=== PATIENT | male | born 1960 | race Caucasian/White ===

== ENCOUNTER 2017-08-08 09:58 | Emergency (ER) | payer OTHER ==
[~2017-08-08] VITALS: Ht 175.3 cm; Wt 133.2 kg
[2017-08-08 10:13] VITALS: BP 178/81; PULSE 66; RESP 16; TEMP 98; O2SAT 92
[2017-08-08] MEDS ORDERED: CARV25TA PO (10:59)
[2017-08-08] MEDS ORDERED: ALBUAER3 INH (10:59)
[2017-08-08] MEDS ORDERED: METF500T PO (10:59)
[2017-08-08] MEDS ORDERED: SYMB160A INH (10:59)
[2017-08-08] MEDS ORDERED: NICO21DI2 T-DERMAL (10:59)
[2017-08-08] MEDS ORDERED: LISI10TA PO (10:59)
[2017-08-08] MEDS ORDERED: AMLO10TA2 PO (10:59)
--- NOTE | 2017-08-08 11:39 | PD ---
HPI Chief Complaint: Edema Time Seen by Provider: 11:29 Travel History International Travel<30 days: No Contact w/Intl Traveler<30days: No Traveled to known affect area: No History of Present Illness HPI This 57-year-old male says he noted some swelling of his legs and arms since Tuesday. He has a history of hypertension and diabetes. He is on Glucophage he is also on Norvasc. He is not aware of any recent change in his medication. He does have significant arthritis. He has noted some breathing difficulties at night. He is a history of COPD he is not having any chest pain. PFSH Past Medical History Arthritis: Yes Cardiovascular Problems: Yes (htn) COPD: Yes Diabetes: Yes (type 2) Patient Takes Glucophage: Yes (08/07/17 1900) Diminished Hearing: No Hypertension: Yes Medical other: Yes (left leg DVT) Respiratory: Yes (copd) Tetanus Vaccination: < 5 Years Influenza Vaccination: No Past Surgical History Joint Replacement: Yes (bilat knee replace.) Social History Alcohol Use: No Tobacco Use: Yes (1-2 cigs daily) Substance Use: Yes (marijuana ) Allergies-Medications (Allergen,Severity, Reaction): Coded Allergies: aspirin (Verified Allergy, Severe, facial swelling, 08/08/17) ibuprofen (Verified Allergy, Severe, facial swelling, 08/08/17) penicillin G (Verified Allergy, Unknown, 08/08/17) Reported Meds & Prescriptions Reported Meds & Active Scripts Active Reported Nicotine Patch (Nicotine) 21 Mg/24 Hr Patch 21 Mg T-DERMAL DAILY Lisinopril-Hctz 10-12.5 Mg Tab 2 Tab PO DAILY Metformin (Metformin HCl) 500 Mg Tab 500 Mg PO DAILY With a meal Amlodipine (Amlodipine Besylate) 10 Mg Tab 10 Mg PO DAILY Carvedilol 25 Mg Tab 25 Mg PO BID Proair Hfa (Albuterol Sulfate) 90 Mcg Hfa.aer.ad 90 Mcg INH TID Symbicort Inh (Budesonide/Formoterol Fumarate) 160-4.5 Mcg/Act Aero 2 Puff INH Q12HR Review of Systems Except as stated in HPI: all other systems reviewed are Neg General / Constitutional: No: Fever, Chills Eyes: No: Diploplia, Blurred Vision HENT: No: Headaches, Vertigo Cardiovascular: Positive: Edema, No: Chest Pain or Discomfort, Palpitations Respiratory: Positive: Shortness of Breath, No: Cough Gastrointestinal: No: Nausea, Vomiting Genitourinary: No: Urgency, Frequency Musculoskeletal: No: Myalgias Psychiatric: No: Anxiety Endocrine: No: Heat Intolerance, Cold Intolerance Physical Exam Narrative GENERAL: [-] SKIN: Focused skin assessment warm/dry. HEAD: Atraumatic. Normocephalic. EYES: Pupils equal and round. No scleral icterus. No injection or drainage. ENT: No nasal bleeding or discharge. Mucous membranes pink and moist. NECK: Trachea midline. No JVD. CARDIOVASCULAR: Regular rate and rhythm. No murmur appreciated. RESPIRATORY: No accessory muscle use. Clear to auscultation. Breath sounds equal bilaterally. GASTROINTESTINAL: Abdomen soft, non-tender, nondistended. Hepatic and splenic margins not palpable. MUSCULOSKELETAL: No obvious deformities. No clubbing. No cyanosis. Bilateral pedal edema NEUROLOGICAL: Awake and alert. No obvious cranial nerve deficits. Motor grossly within normal limits. Normal speech. PSYCHIATRIC: Appropriate mood and affect; insight and judgment normal. Data Data Last Documented VS Vital Signs Date Time Temp Pulse Resp B/P (MAP) Pulse Ox O2 Delivery O2 Flow Rate FiO2 08/08/17 10:13 98.0 66 16 178/81 (113) 92 Orders Orders Electrocardiogram (08/08/17 11:36) Complete Blood Count With Diff (08/08/17 11:36) Comprehensive Metabolic Panel (08/08/17 11:36) B-Type Natriuretic Peptide (08/08/17 11:36) Urinalysis - C+S If Indicated (08/08/17 11:36) Magnesium (Mg) (08/08/17 11:36) Thyroid Stimulating Hormone (08/08/17 11:36) Chest, Single Ap (08/08/17 11:36) Labs Laboratory Tests Test 08/08/17 11:30 08/08/17 11:55 Urine Color STRAW Urine Turbidity CLEAR Urine pH 7.5 Urine Specific [place] 1.015 Urine Protein TRACE mg/dL Urine Glucose (UA) NEG mg/dL Urine Ketones NEG mg/dL Urine Occult Blood NEG Urine Nitrite NEG Urine Bilirubin NEG Urine Urobilinogen 0.2 MG/DL Urine Leukocyte Esterase NEG Urine RBC 4-9 /hpf Urine WBC 0-2 /hpf Urine Squamous Epithelial Cells 0-5 /hpf Urine Bacteria RARE /hpf Urine Hyaline Casts 2 /lpf Urine Mucus OCC /lpf Microscopic Urinalysis Comment CULT NOT INDICATED White Blood Count 8.2 TH/MM3 Red Blood Count 5.04 MIL/MM3 Hemoglobin 14.1 GM/DL Hematocrit 42.5 % Mean Corpuscular Volume 84.3 FL Mean Corpuscular Hemoglobin 27.9 PG Mean Corpuscular Hemoglobin Concent 33.1 % Red Cell Distribution Width 13.2 % Platelet Count 242 TH/MM3 Mean Platelet Volume 7.7 FL Neutrophils (%) (Auto) 65.0 % Lymphocytes (%) (Auto) 19.4 % Monocytes (%) (Auto) 9.1 % Eosinophils (%) (Auto) 6.0 % Basophils (%) (Auto) 0.5 % Neutrophils # (Auto) 5.4 TH/MM3 Lymphocytes # (Auto) 1.6 TH/MM3 Monocytes # (Auto) 0.7 TH/MM3 Eosinophils # (Auto) 0.5 TH/MM3 Basophils # (Auto) 0.0 TH/MM3 CBC Comment DIFF FINAL Differential Comment Blood Urea Nitrogen 14 MG/DL Creatinine 0.60 MG/DL Random Glucose 90 MG/DL Total Protein 7.1 GM/DL Albumin 3.2 GM/DL Calcium Level 8.5 MG/DL Magnesium Level 2.0 MG/DL Alkaline Phosphatase 72 U/L Aspartate Amino Transf (AST/SGOT) 14 U/L Alanine Aminotransferase (ALT/SGPT) 19 U/L Total Bilirubin 0.3 MG/DL Sodium Level 138 MEQ/L Potassium Level 3.6 MEQ/L Chloride Level 100 MEQ/L Carbon Dioxide Level 32.7 MEQ/L Anion Gap 5 MEQ/L Estimat Glomerular Filtration Rate 139 ML/MIN B-Type Natriuretic Peptide 50 PG/ML Thyroid Stimulating Hormone 3rd Gen 1.490 uIU/ML [facility] Medical Decision Making Medical Screen Exam Complete: Yes Emergency Medical Condition: Yes Medical Record Reviewed: Yes Differential Diagnosis Differential includes CHF, anasarca, medication side effect Narrative Course BMP is normal. Chest x-ray read as negative. Albumin is slightly low at 3.2. I suspect the edema is primarily due to his Norvasc. I will recommend he stop the Norvasc and will substitute 20 mg of lisinopril Diagnosis Primary Impression: Adverse drug reaction Additional Instructions: Stop Norvasc Scripts Lisinopril (Lisinopril) 20 Mg Tab 20 MG PO DAILY, #30 TAB 0 Refills Prov: Henri Mayes MD 08/08/17 Disposition: 01 DISCHARGE HOME Condition: Stable Henri Mayes MD Aug 08, 2017 11:39
[2017-08-08 12:11] LABS: AUTOMATED NEUTROPHIL # 5.4 TH/MM3 (1.8-7.7); BASOPHIL % 0.5 % (0.0-2.0); EOSINOPHIL # 0.5 TH/MM3 (0-0.4); HEMATOCRIT 42.5 % (39.0-51.0); HEMOGLOBIN 14.1 GM/DL (13.0-17.0); LYMPH % 19.4 % (9.0-44.0); LYMPHOCYTE # 1.6 TH/MM3 (1.0-4.8); MEAN CELL VOLUME 84.3 FL (80.0-100.0); MEAN CORPUSCULAR HEMOGLOBIN 27.9 PG (27.0-34.0); MEAN CORPUSCULAR HGB CONC 33.1 % (32.0-36.0); MEAN PLATELET VOLUME 7.7 FL (7.0-11.0); MONO % 9.1 % (0.0-8.0); MONOCYTE # 0.7 TH/MM3 (0-0.9); PLATELET COUNT 242 TH/MM3 (150-450); RED BLOOD COUNT 5.04 MIL/MM3 (4.50-5.90); RED CELL DISTRIBUTION WIDTH 13.2 % (11.6-17.2); WHITE BLOOD COUNT 8.2 TH/MM3 (4.0-11.0)
--- NOTE | 2017-08-08 12:25 | RADRPT ---
EXAM DATE/TIME: 08/08/2017 11:50 [facility] COMPARISON: No previous studies available for comparison. INDICATIONS : Short of Breath with leg swelling MEDICAL HISTORY : None. SURGICAL HISTORY : None. ENCOUNTER: Initial ACUITY: 1 day PAIN SCORE: 0/10 LOCATION: chest FINDINGS: A single view of the chest demonstrates the lungs to be symmetrically aerated without evidence of mas s, infiltrate or effusion. The cardiomediastinal contours are unremarkable. Osseous structures are intact. CONCLUSION: No acute disease. Sami Mccabe MD on August 08, 2017 at 12:24 Board Certified Radiologist. This report was verified electronically.
[2017-08-08 12:30] LABS: CHLORIDE 100 MEQ/L (98-107); SODIUM (NA) 138 MEQ/L (136-145)
[2017-08-08 12:34] LABS: CALCIUM 8.5 MG/DL (8.5-10.1)
[2017-08-08 12:35] LABS: ALBUMIN 3.2 GM/DL (3.4-5.0); BICARBONATE 32.7 MEQ/L (21.0-32.0); BLOOD UREA NITROGEN 14 MG/DL (7-18); GLUCOSE,RANDOM 90 MG/DL (74-106)
[2017-08-08 12:38] LABS: ALT (GPT) 19 U/L (12-78); AST (GOT) 14 U/L (15-37); GLOMERULAR FILTRATION RATE 139 ML/MIN (>89)
[2017-08-08 12:39] LABS: TOTAL BILIRUBIN ADULT 0.3 MG/DL (0.2-1.0); TOTAL PROTEIN 7.1 GM/DL (6.4-8.2)
[2017-08-08 12:40] LABS: ALKALINE PHOSPHATASE 72 U/L (45-117)
[2017-08-08 12:42] LABS: BILIRUBIN, URINE NEG (NEG); BLOOD, URINE NEG (NEG); GLUCOSE,URINE NEG (NEG); KETONE, URINE NEG (NEG); NITRITE,URINE NEG (NEG); PH, URINE 7.5 (5.0-8.5); URINE LEUKOCYTE ESTERASE NEG (NEG)
[2017-08-08 12:43] LABS: URINE COLOR STRAW (YELLW/STRAW)
[2017-08-08 12:50] LABS: HYALINE CAST, URINE 2 /lpf (RARE); MUCUS URINE OCC /lpf (OCC); WBC, URINE 0-2 /hpf (0-5)
[2017-08-08 12:51] LABS: BACTERIA, URINE RARE /hpf; SQUAMOUS EPITHELIAL CELL URINE 0-5 /hpf (0-5)
[2017-08-08] MEDS ORDERED: LISI-515 PO (13:10)
[2017-08-08 13:34] VITALS: BP 164/82
--- NOTE | 2017-08-08 15:16 | EKG ---
Date Performed: 08/08/2017 Time Performed: 11:52:02 PTAGE: 57 years EKG: SINUS BRADYCARDIA WITH SINUS ARRHYTHMIA BORDERLINE ECG NO PREVIOUS TRACING DOCTOR: Gila Torres Interpretating Date/Time 08/08/2017 15:11:40
== END 2017-08-08 13:40 | disposition home or self-care (01) ==
LOC: PHED 09:58
DX: R60.0 Localized edema (principal); T46.1X5A Adverse effect of calcium-channel blockers, initial encounter; R94.31 Abnormal electrocardiogram [ECG] [EKG]; I10 Essential (primary) hypertension; E11.9 Type 2 diabetes mellitus without complications; J44.9 Chronic obstructive pulmonary disease, unspecified; F17.210 Nicotine dependence, cigarettes, uncomplicated; F12.90 Cannabis use, unspecified, uncomplicated; Z86.718 Personal history of other venous thrombosis and embolism
CPT/HCPCS: 71045; 80053; 81001; 83735; 83880; 84443; 85025; 93005; 99285

== ENCOUNTER 2017-08-25 14:03 | Inpatient (IN) | payer OTHER ==
[~2017-08-25] VITALS: Ht 172.7 cm; Wt 127.0 kg
[2017-08-25] VITALS (8 sets, daily range): BP systolic 111–137; BP diastolic 69–75; PULSE 77–85; RESP 16–18; TEMP 96.1–99.2; O2SAT 90–95
[~2017-08-25 14:03] MED LIST: ALBUAER3 INH; AMLO10TA2 PO; CARV25TA PO; LISI-515 PO; LISI10TA PO; METF500T PO; NICO21DI2 T-DERMAL; SYMB160A INH
[2017-08-25] MEDS ORDERED: AZIT500T2 PO (14:20)
[2017-08-25] MEDS ORDERED: FURO1TAB60 PO (14:20)
--- NOTE | 2017-08-25 14:28 | PD ---
HPI Chief Complaint: Respiratory Symptoms Time Seen by Provider: 14:24 Travel History International Travel<30 days: No Contact w/Intl Traveler<30days: No Traveled to known affect area: No History of Present Illness HPI 57-year-old male patient with history of COPD, currently on Lasix, hypertension , presents to the ER today for 1 week history of coughing, shortness of breath, chest discomfort, dyspnea on exertion. He had been in to the ER a week ago and had been given Lasix which he is still taking, was seen at urgent care a few days ago and they told him that it was his COPD, and a flu, and had given him inhalers, and he is here because he states is not getting better. He denies any fevers, vomiting, diarrhea, or other issues. Modifying Factors: None Associated Signs & Symptoms: Coughing, shortness of breath Risk Factors: COPD history PFSH Past Medical History Arthritis: Yes Cardiovascular Problems: Yes (htn) COPD: Yes Diabetes: Yes (type 2) Patient Takes Glucophage: Yes Diminished Hearing: No Hypertension: Yes Respiratory: Yes (copd) Tetanus Vaccination: < 5 Years Influenza Vaccination: No Past Surgical History Joint Replacement: Yes (bilat knee replace.) Social History Alcohol Use: No Tobacco Use: No Substance Use: Yes (marijuana ) Allergies-Medications (Allergen,Severity, Reaction): Coded Allergies: aspirin (Verified Allergy, Severe, facial swelling, 08/25/17) ibuprofen (Verified Allergy, Severe, facial swelling, 08/25/17) penicillin G (Verified Allergy, Unknown, 08/25/17) Reported Meds & Prescriptions Reported Meds & Active Scripts Active Lisinopril 20 Mg Tab 20 Mg PO DAILY Reported Azithromycin 500 Mg Tab 500 Mg PO DAILY Lasix (Furosemide) 40 Mg Tab 40 Mg PO DAILY Nicotine Patch (Nicotine) 21 Mg/24 Hr Patch 21 Mg T-DERMAL DAILY Lisinopril-Hctz 10-12.5 Mg Tab 2 Tab PO DAILY Metformin (Metformin HCl) 500 Mg Tab 500 Mg PO DAILY With a meal Carvedilol 25 Mg Tab 25 Mg PO BID Proair Hfa (Albuterol Sulfate) 90 Mcg Hfa.aer.ad 90 Mcg INH TID Symbicort Inh (Budesonide/Formoterol Fumarate) 160-4.5 Mcg/Act Aero 2 Puff INH Q12HR Review of Systems Except as stated in HPI: all other systems reviewed are Neg Physical Exam Narrative GENERAL: Well-developed middle-age male patient currently in mild distress. Awake and oriented 3. SKIN: Focused skin assessment warm/dry. HEAD: Atraumatic. Normocephalic. EYES: Pupils equal and round. No scleral icterus. No injection or drainage. ENT: No nasal bleeding or discharge. Mucous membranes pink and moist. NECK: Trachea midline. No JVD. Supple. CARDIOVASCULAR: Regular rate and rhythm. No murmur appreciated. RESPIRATORY: No accessory muscle use. Wheezing throughout bilaterally. Breath sounds equal bilaterally. GASTROINTESTINAL: Abdomen soft, non-tender, nondistended. Hepatic and splenic margins not palpable. MUSCULOSKELETAL: No obvious deformities. No clubbing. No cyanosis. Bilateral pitting edema of the legs. NEUROLOGICAL: Awake and alert. No obvious cranial nerve deficits. Motor grossly within normal limits. Normal speech. PSYCHIATRIC: Appropriate mood and affect; insight and judgment normal. Data Data Last Documented VS Vital Signs Date Time Temp Pulse Resp B/P (MAP) Pulse Ox O2 Delivery O2 Flow Rate FiO2 08/25/17 16:02 85 18 111/69 (83) 93 Nasal Cannula 2.00 08/25/17 14:13 99.2 Orders Orders Complete Blood Count With Diff (08/25/17 14:24) Comprehensive Metabolic Panel (08/25/17 14:24) B-Type Natriuretic Peptide (08/25/17 14:24) Ckmb (Isoenzyme) Profile (08/25/17 14:24) Troponin I (08/25/17 14:24) Iv Access Insert/Monitor (08/25/17 14:24) Electrocardiogram (08/25/17 14:24) Ecg Monitoring (08/25/17 14:24) Oximetry (08/25/17 14:24) Oxygen Administration (08/25/17 14:24) Chest, Single Ap (08/25/17 14:24) Sodium Chloride 0.9% Flush (Ns Flush) (08/25/17 14:30) Albuterol-Ipratropium Neb (Duoneb Neb) (08/25/17 14:30) CKMB (08/25/17 14:30) CKMB% (08/25/17 14:30) Methylprednisolone So Succ Inj (Solumedr (08/25/17 15:15) Albuterol-Ipratropium Neb (Duoneb Neb) (08/25/17 15:15) Labs Laboratory Tests Test 08/25/17 14:30 White Blood Count 5.9 TH/MM3 Red Blood Count 5.25 MIL/MM3 Hemoglobin 14.5 GM/DL Hematocrit 43.7 % Mean Corpuscular Volume 83.2 FL Mean Corpuscular Hemoglobin 27.6 PG Mean Corpuscular Hemoglobin Concent 33.2 % Red Cell Distribution Width 13.4 % Platelet Count 163 TH/MM3 Mean Platelet Volume 8.4 FL Neutrophils (%) (Auto) 66.2 % Lymphocytes (%) (Auto) 17.6 % Monocytes (%) (Auto) 15.1 % Eosinophils (%) (Auto) 0.3 % Basophils (%) (Auto) 0.8 % Neutrophils # (Auto) 4.0 TH/MM3 Lymphocytes # (Auto) 1.0 TH/MM3 Monocytes # (Auto) 0.9 TH/MM3 Eosinophils # (Auto) 0.0 TH/MM3 Basophils # (Auto) 0.0 TH/MM3 CBC Comment DIFF FINAL Differential Comment Blood Urea Nitrogen 30 MG/DL Creatinine 0.80 MG/DL Random Glucose 110 MG/DL Total Protein 7.5 GM/DL Albumin 3.2 GM/DL Calcium Level 8.5 MG/DL Alkaline Phosphatase 82 U/L Aspartate Amino Transf (AST/SGOT) 26 U/L Alanine Aminotransferase (ALT/SGPT) 26 U/L Total Bilirubin 0.3 MG/DL Sodium Level 137 MEQ/L Potassium Level 3.1 MEQ/L Chloride Level 96 MEQ/L Carbon Dioxide Level 34.6 MEQ/L Anion Gap 6 MEQ/L Estimat Glomerular Filtration Rate 100 ML/MIN Total Creatine Kinase 102 U/L Creatine Kinase MB 0.8 NG/ML Troponin I LESS THAN 0.02 NG/ML B-Type Natriuretic Peptide 33 PG/ML MDM Medical Decision Making Medical Screen Exam Complete: Yes Emergency Medical Condition: Yes Medical Record Reviewed: Yes Interpretation(s) EKG shows normal sinus rhythm at a rate of 80 bpm with occasional PAC. No signs of acute ST elevations or depressions. Laboratory Tests Test 08/25/17 14:30 Monocytes (%) (Auto) 15.1 % (0.0-8.0) Blood Urea Nitrogen 30 MG/DL (7-18) Random Glucose 110 MG/DL (74-106) Albumin 3.2 GM/DL (3.4-5.0) Potassium Level 3.1 MEQ/L (3.5-5.1) Chloride Level 96 MEQ/L (98-107) Carbon Dioxide Level 34.6 MEQ/L (21.0-32.0) Troponin I LESS THAN 0.02 NG/ML Last 24 hours Impressions Chest X-Ray 08/25/17 1424 Signed Impressions: Service Date/Time: July 14:28 - CONCLUSION: Bibasilar streakiness is again noted consistent with atelectasis and/or infiltrates. Clinical correlation is recommended. Ronn Cochran MD Differential Diagnosis COPD exacerbation versus CHF versus pneumonia Narrative Course Chest x-ray did not show overt pulmonary acute processes or signs of obvious pneumonia. He did have some sinus atelectasis. He was given Solu-Medrol and nebulizers in the ER. Symptoms improve with the treatment and patient was ambulated around the ER but after multiple nebulizers, is still doing poorly and his oxygenation is in the 80s. At this point, plan would be to admit the patient for further treatment. BNP is normal. Case was discussed with Dr. Erwin for admission. Diagnosis Primary Impression: COPD exacerbation Admitting Information Admitting Physician Requests: Admit Bobby Steve MD Aug 25, 2017 14:28
[2017-08-25] MEDS ORDERED: SODIUM CHLORIDE 0.9% FLUSH 10 ML FLUSH IVF PRN (14:30)
[2017-08-25] MEDS: RESP: ALBUTEROL 2.5 MG/IPRATROPIUM 0.5 MG NEB (SCH) INH ×4 (14:47→19:57)
[2017-08-25 14:52] LABS: CHLORIDE 96 MEQ/L (98-107); SODIUM (NA) 137 MEQ/L (136-145)
[2017-08-25 14:54] LABS: BASOPHIL % 0.8 % (0.0-2.0); EOSINOPHIL % 0.3 % (0.0-4.0); HEMATOCRIT 43.7 % (39.0-51.0); HEMOGLOBIN 14.5 GM/DL (13.0-17.0); LYMPH % 17.6 % (9.0-44.0); MEAN CELL VOLUME 83.2 FL (80.0-100.0); MEAN CORPUSCULAR HEMOGLOBIN 27.6 PG (27.0-34.0); MEAN CORPUSCULAR HGB CONC 33.2 % (32.0-36.0); MEAN PLATELET VOLUME 8.4 FL (7.0-11.0); MONO % 15.1 % (0.0-8.0); MONOCYTE # 0.9 TH/MM3 (0-0.9); NEUT % 66.2 % (16.0-70.0); PLATELET COUNT 163 TH/MM3 (150-450); RED BLOOD COUNT 5.25 MIL/MM3 (4.50-5.90); RED CELL DISTRIBUTION WIDTH 13.4 % (11.6-17.2); WHITE BLOOD COUNT 5.9 TH/MM3 (4.0-11.0)
[2017-08-25 14:56] LABS: ALBUMIN 3.2 GM/DL (3.4-5.0); BICARBONATE 34.6 MEQ/L (21.0-32.0); BLOOD UREA NITROGEN 30 MG/DL (7-18); CALCIUM 8.5 MG/DL (8.5-10.1); GLUCOSE,RANDOM 110 MG/DL (74-106)
[2017-08-25 14:59] LABS: ALT (GPT) 26 U/L (12-78); AST (GOT) 26 U/L (15-37); GLOMERULAR FILTRATION RATE 100 ML/MIN (>89)
[2017-08-25 15:01] LABS: TOTAL BILIRUBIN ADULT 0.3 MG/DL (0.2-1.0); TOTAL PROTEIN 7.5 GM/DL (6.4-8.2)
[2017-08-25 15:02] LABS: ALKALINE PHOSPHATASE 82 U/L (45-117)
[2017-08-25 15:04] LABS: TROPONIN I LESS THAN 0.02 NG/ML (0.02-0.05)
--- NOTE | 2017-08-25 15:10 | RADRPT ---
EXAM DATE/TIME: 08/25/2017 14:28 [facility] COMPARISON: CHEST SINGLE AP, August 08, 2017, 11:50. INDICATIONS : Short of breath, cough, congestion. MEDICAL HISTORY : Diabetes mellitus type II. Chronic obstructive pulmonary disease. Hypertension. Arthritis. SURGICAL HISTORY : Total knee replacement, right. Total knee replacement, left. ENCOUNTER: Initial ACUITY: 3 days PAIN SCORE: 3/10 LOCATION: chest FINDINGS: The heart is stable. Bibasilar streakiness is again noted consistent with atelectasis and/or infiltra serjio. Clinical correlation is recommended. CONCLUSION: Bibasilar streakiness is again noted consistent with atelectasis and/or infiltrates. Clinical correla tion is recommended. Ronn Cochran MD on August 25, 2017 at 15:07 Board Certified Radiologist. This report was verified electronically.
[2017-08-25] MEDS ORDERED: methylPREDNISolone SOD SUCC 125 MG/2 ML VIAL IV PUSH ONE (15:15)
[2017-08-25] MEDS ORDERED: RESP: ALBUTEROL 2.5 MG/IPRATROPIUM 0.5 MG NEB (PRN) INH (16:45)
[2017-08-25] MEDS ORDERED: DEXTROSE 50% IN WATER 50 ML VIAL(D50) IV PUSH PRN (16:45)
[2017-08-25] MEDS ORDERED: GLUCAGON 1 MG/ML VIAL OTHER PRN (16:45)
[2017-08-25] MEDS ORDERED: SODIUM CHLORIDE 0.9% FLUSH 10 ML FLUSH IV FLUSH PRN (16:45)
[2017-08-25] MEDS: INSULIN ASPART SUPPLEMENTAL SCALE SQ SCH ×2 (17:00→21:54)
--- NOTE | 2017-08-25 17:19 | HHI.HP ---
[facility] Primary Care Physician Roland Pa MD Admission Diagnosis COPD exacerbation/hypoxia Diagnoses: (1) Chronic obstructive pulmonary disease with acute exacerbation Diagnosis: Principal (2) Shortness of breath Diagnosis: Principal (3) Chest pain Diagnosis: Principal (4) Hypokalemia Diagnosis: Principal (5) Chronic respiratory failure with hypoxia and hypercapnia Diagnosis: Principal Chief Complaint: Shortness of breath and difficult breathing Travel History International Travel<30 Days: No Contact w/Intl Traveler <30 Da: No Traveled to Known Affected Are: No History of Present Illness This is a 57-year-old male with known history of hypertension, diabetes, chronic respiratory failure, 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 Patient originally resides in [place] and recently lost his and came to [place] to visit some friends. He is in the process of traveling up north to go be with his son and grandchildren. Patient does have a long history of lung issues with chronic respiratory failure dating back to the most recent in 2015 while he was in [facility] he was hospitalized and he is discharged home on home oxygen. Patient was using home oxygen, nebulizer, medications at home however he states that he was on oxygen for approximately 6 months and [facility] so he progressively got worse over the last year. Since the loss of his he came to [place] and he has been having significant problems he went to the prior medical doctor on Tuesday where he was given a shot in the arm, pills and was told something about the flu. He was doing well with that regimen of treatment until last night when he started developing shortness of breath, dyspnea on exertion, cough with white phlegm production. He states that he has been experiencing chest pressure since last night worse whenever he walks or lays flat. If he sits in a reclining position the pressure does go away. He indicates that the pain does radiate from the anterior chest around into his back. He denies any fever, he states that he has had chills. Denies any nausea, vomiting, diaphoresis. Denies any abdominal pain, diarrhea or constipation. Patient indicates that he cannot lay flat because it causes worsening shortness of breath. As well as if he walks he does get pressure on his chest but it does go away when he rests. He does have a home oxygen monitor in which over the last week he states that his O2 saturations have been in the 80s. Despite the use of nebulizer treatment and the treatment from his primary medical doctor. Because of those reasons he came to the emergency department for evaluation. While in the emergency department there is documentation of patient having desaturations on room air down to 87%. He was placed on nasal cannula and he is now with O2 saturations of 92-95%. Patient has been admitted for further evaluation and management. Review of Systems Respiratory: COMPLAINS OF: Cough, Sputum production, Shortness of breath Cardiovascular: COMPLAINS OF: Chest pain, Lower Extremity Edema Except as stated in HPI: all other systems reviewed are Neg Past Family Social History Past Medical History Hypertension Diabetes Chronic objective pulmonary disease Chronic hypoxic/hypercapnic respiratory failure Disability from chronic lung disease Imezl-Xmgjenwqb-Jwryh syndrome Past Surgical History Bilateral knee replacement Reported Medications Reported Meds & Active Scripts Active Lisinopril 20 Mg Tab 20 Mg PO DAILY Reported Lasix (Furosemide) 40 Mg Tab 40 Mg PO DAILY Nicotine Patch (Nicotine) 21 Mg/24 Hr Patch 21 Mg T-DERMAL DAILY Lisinopril-Hctz 10-12.5 Mg Tab 2 Tab PO DAILY Metformin (Metformin HCl) 500 Mg Tab 500 Mg PO DAILY With a meal Carvedilol 25 Mg Tab 25 Mg PO BID Proair Hfa (Albuterol Sulfate) 90 Mcg Hfa.aer.ad 90 Mcg INH TID Symbicort Inh (Budesonide/Formoterol Fumarate) 160-4.5 Mcg/Act Aero 2 Puff INH Q12HR Allergies: Coded Allergies: aspirin (Verified Allergy, Severe, facial swelling, 08/25/17) ibuprofen (Verified Allergy, Severe, facial swelling, 08/25/17) penicillin G (Verified Allergy, Unknown, 08/25/17) Family History Reviewed is significant for mother with diabetes, father with asbestos Social History Patient continues to smoke cigarettes approximately 1 pack per week. He used to smoke 2 pack of cigarettes a day since he was 12 years old. Denies any alcohol. Does use marijuana approximately 1 g every 2 weeks via vapor Physical Exam Vital Signs Vital Signs Date Time Temp Pulse Resp B/P (MAP) Pulse Ox O2 Delivery O2 Flow Rate FiO2 08/25/17 16:02 85 18 111/69 (83) 93 Nasal Cannula 2.00 08/25/17 14:50 92 Nasal Cannula 2.00 08/25/17 14:31 95 Nasal Cannula 2.00 08/25/17 14:31 95 Nasal Cannula 2.00 08/25/17 14:17 (89) 08/25/17 14:13 99.2 85 18 116/75 (89) 95 Nasal Cannula 2.00 08/25/17 14:13 87 Room Air Physical Exam GENERAL: Well-developed, central obese, in no acute distress. alert and orientated HEENT: Head is normocephalic without any lesions or masses noted. Facial features are symmetric. Eyes: Pupils equal round reactive to light. Extraocular muscles are intact. Conjunctivae were clear. Oropharyngeal: Pharynx without any erythema edema. Tongue is midline without deviation. Buccal mucosa is moist without any masses or lesions NECK: Supple without any masses. Trachea midline no deviation. No JVD, no bruits are appreciated CARDIAC: Regular rhythm, regular rate. S1/S2 are heard. No murmurs gallops or rubs. LUNGS: Diminished breath sounds, decreased air movement. No wheeze, rhonchi or rales. No use of accessory muscles on inspiration or expiration. ABDOMEN: Soft, nontender. Nondistended. Bowel sounds heard in all 4 quadrants. No organomegaly or masses. Negative rebound, negative guarding EXTREMITIES: 3+ pitting edema noted bilateral lower extremities, pulses are equal bilaterally. No cyanosis or clubbing NEUROLOGY: Mood and affect appear appropriate. Cranial nerves II through XII grossly intact. Muscle strength 5/5 in upper and lower extremities bilaterally. Deep tendon reflexes are 2+ in upper and lower extremities bilaterally. Laboratory Laboratory Tests Test 08/25/17 14:30 White Blood Count 5.9 Red Blood Count 5.25 Hemoglobin 14.5 Hematocrit 43.7 Mean Corpuscular Volume 83.2 Mean Corpuscular Hemoglobin 27.6 Mean Corpuscular Hemoglobin Concent 33.2 Red Cell Distribution Width 13.4 Platelet Count 163 Mean Platelet Volume 8.4 Neutrophils (%) (Auto) 66.2 Lymphocytes (%) (Auto) 17.6 Monocytes (%) (Auto) 15.1 Eosinophils (%) (Auto) 0.3 Basophils (%) (Auto) 0.8 Neutrophils # (Auto) 4.0 Lymphocytes # (Auto) 1.0 Monocytes # (Auto) 0.9 Eosinophils # (Auto) 0.0 Basophils # (Auto) 0.0 CBC Comment DIFF FINAL Differential Comment Blood Urea Nitrogen 30 Creatinine 0.80 Random Glucose 110 Total Protein 7.5 Albumin 3.2 Calcium Level 8.5 Alkaline Phosphatase 82 Aspartate Amino Transf (AST/SGOT) 26 Alanine Aminotransferase (ALT/SGPT) 26 Total Bilirubin 0.3 Sodium Level 137 Potassium Level 3.1 Chloride Level 96 Carbon Dioxide Level 34.6 Anion Gap 6 Estimat Glomerular Filtration Rate 100 Total Creatine Kinase 102 Creatine Kinase MB 0.8 Troponin I LESS THAN 0.02 B-Type Natriuretic Peptide 33 Result Diagram: 08/25/17 1430 08/25/17 1430 Imaging Last Impressions Chest X-Ray 08/25/17 1424 Signed Impressions: Service Date/Time: , August 25, 2017 14:28 - CONCLUSION: Bibasilar streakiness is again noted consistent with atelectasis and/or infiltrates. Clinical correlation is recommended. Ronn Cochran MD Caprini VTE Risk Assessment Caprini VTE Risk Assessment: Mod/High Risk (score >= 2) Caprini Risk Assessment Model Point Value = 1 Point Value = 2 Point Value = 3 Point Value = 5 Age 41-60 Minor surgery BMI > 25 kg/m2 Swollen legs Varicose veins or History of unexplained or recurrent spontaneous Oral contraceptives or hormone replacement Sepsis (< 1 month) Serious lung disease, including pneumonia (< 1 month) Abnormal pulmonary function Acute myocardial infarction Congestive heart failure (< 1 month) History of inflammatory bowel disease Medical patient at bed rest Age 61-74 Arthroscopic surgery Major open surgery (> 45 min) Laparoscopic surgery (> 45 min) Malignancy Confined to bed (> 72 hours) Immobilizing plaster cast Central venous access Age >= 75 History of VTE Family history of VTE Factor V Leiden Prothrombin [id number] Lupus anticoagulant Anticardiolipin antibodies Elevated serum homocysteine Heparin-induced thrombocytopenia Other congenital or acquired thrombophilia Stroke (< 1 month) Elective arthroplasty Hip, pelvis, or leg fracture Acute spinal cord injury (< 1 month) Prophylaxis Regimen Total Risk Factor Score Risk Level Prophylaxis Regimen 0-1 Low Early ambulation 2 Moderate Order ONE of the following: *Sequential Compression Device (SCD) *Heparin 5000 units SQ BID 3-4 Higher Order ONE of the following medications: *Heparin 5000 units SQ TID *Enoxaparin/Lovenox 40 mg SQ daily (WT < 150 kg, CrCl > 30 mL/min) *Enoxaparin/Lovenox 30 mg SQ daily (WT < 150 kg, CrCl > 10-29 mL/min) *Enoxaparin/Lovenox 30 mg SQ BID (WT < 150 kg, CrCl > 30 mL/min) AND/OR *Sequential Compression Device (SCD) 5 or more Highest Order ONE of the following medications: *Heparin 5000 units SQ TID (Preferred with Epidurals) *Enoxaparin/Lovenox 40 mg SQ daily (WT < 150 kg, CrCl > 30 mL/min) *Enoxaparin/Lovenox 30 mg SQ daily (WT < 150 kg, CrCl > 10-29 mL/min) *Enoxaparin/Lovenox 30 mg SQ BID (WT < 150 kg, CrCl > 30 mL/min) AND *Sequential Compression Device (SCD) Assessment and Plan Assessment and Plan Chronic obstructive pulmonary disease with acute exacerbation -Continue O2 sat mentation maintain O2 sats greater than 92% -Duo nebs every 6 hours while awake and every 2 hours as needed -Solu-Medrol 60 mg IV every 6 hours -Continue Symbicort inhaler -Obtain sputum culture, influenza testing -Start Levaquin 750 mg daily -Check pro-calcitonin level Chest pain, atypical -Patient does have increased risk factors to include age, body habitus, hypertension, diabetes, tobacco use -Patient did present with symptoms to include shortness of breath, dyspnea on exertion, orthopnea, lower extremity edema -Chest x-ray does not indicate any edema, BNP was 33 -We will rule patient out for acute coronary event with serial cardiac enzymes and serial EKGs -Obtain echocardiogram -Continue monitor telemetry -Continue aspirin, beta-edel, GALEN inhibitor -Check lipid panel Chronic hypoxic, hypercapnic respiratory failure -Patient states that [facility] would not continue to authorize his home oxygen -We will continue to evaluate the patient and perform home oxygen study prior to discharge Diabetes -Accu-Cheks with sliding scale insulin -Diabetic diet -Obtain hemoglobin A1c Hypertension -Home medications have been continued DVT prevention -Sequential compression devices -Subcutaneous heparin Physician Certification 2 Midnight Certification Type: Admission for Inpatient Services Order for Inpatient Services The services are ordered in accordance with Medicare regulations or non- Medicare payer requirements, as applicable. In the case of services not specified as inpatient-only, they are appropriately provided as inpatient services in accordance with the 2-midnight benchmark. Estimated LOS (days): 3 days is the estimated time the patient will need to remain in the hospital, assuming treatment plan goals are met and no additional complications. Post-Hospital Plan: Not yet determined Robert Reed Aug 25, 2017 17:19
[2017-08-25] MEDS: LEVOFLOXACIN 750 MG TAB PO SCH (17:54)
[2017-08-25] MEDS: methylPREDNISolone SOD SUCC 125 MG/2 ML VIAL IV PUSH SCH ×2 (17:55→23:38)
[2017-08-25] MEDS ORDERED: ACETAMINOPHEN 325 MG TAB PO PRN (18:15)
[2017-08-25] MEDS ORDERED: TEMAZEPAM 15 MG CAP PO PRN (18:15)
[2017-08-25] MEDS ORDERED: DOCUSATE SODIUM 100 MG CAP PO PRN (18:15)
[2017-08-25] MEDS ORDERED: ONDANSETRON HCL 4 MG/2 ML VIAL IV PUSH PRN (18:15)
[2017-08-25] MEDS ORDERED: POTASSIUM CHLORIDE 10 MEQ CONTROLLED RELEASE TAB PO ONE (18:15)
[2017-08-25] MEDS ORDERED: CALCIUM CARBONATE 500 MG CHEWABLE TAB CHEW PRN (18:15)
[2017-08-25] MEDS ORDERED: MAGNESIUM HYDROXIDE SUSP 30 ML CUP PO PRN (18:15)
[2017-08-25] MEDS: HYDROCHLOROTHIAZIDE 12.5 MG CAP PO SCH (21:00)
[2017-08-25] MEDS: HEPARIN SODIUM - SQ 10,000 UNITS/ML VIAL SQ SCH (21:15)
[2017-08-25] MEDS: SODIUM CHLORIDE 0.9% FLUSH 10 ML FLUSH IV FLUSH SCH (21:17)
[2017-08-25] MEDS: BUDESONIDE-FORMOTEROL 160/4.5 MCG INHALER INH SCH (21:17)
[2017-08-25] MEDS: LISINOPRIL 20 MG TAB PO SCH (21:17)
[2017-08-25] MEDS: CARVEDILOL 12.5 MG TAB PO SCH (21:18)
[2017-08-26 00:15] VITALS: BP 123/61; PULSE 75; RESP 20; TEMP 98.6; O2SAT 92
[2017-08-26 04:00] VITALS: TEMP 97.6
[2017-08-26] MEDS: methylPREDNISolone SOD SUCC 125 MG/2 ML VIAL IV PUSH SCH ×2 (04:54→12:04)
[2017-08-26 06:18] LABS: AUTOMATED NEUTROPHIL # 1.9 TH/MM3 (1.8-7.7); BASOPHIL % 0.4 % (0.0-2.0); EOSINOPHIL % 0.1 % (0.0-4.0); HEMATOCRIT 46.3 % (39.0-51.0); HEMOGLOBIN 15.1 GM/DL (13.0-17.0); LYMPH % 20.9 % (9.0-44.0); LYMPHOCYTE # 0.6 TH/MM3 (1.0-4.8); MEAN CELL VOLUME 84.6 FL (80.0-100.0); MEAN CORPUSCULAR HEMOGLOBIN 27.6 PG (27.0-34.0); MEAN CORPUSCULAR HGB CONC 32.6 % (32.0-36.0); MEAN PLATELET VOLUME 8.3 FL (7.0-11.0); MONO % 8.7 % (0.0-8.0); MONOCYTE # 0.2 TH/MM3 (0-0.9); NEUT % 69.9 % (16.0-70.0); PLATELET COUNT 162 TH/MM3 (150-450); RED BLOOD COUNT 5.47 MIL/MM3 (4.50-5.90); RED CELL DISTRIBUTION WIDTH 13.5 % (11.6-17.2); WHITE BLOOD COUNT 2.7 TH/MM3 (4.0-11.0)
[2017-08-26 06:27] LABS: CALCIUM 9.2 MG/DL (8.5-10.1)
[2017-08-26 06:28] LABS: BICARBONATE 36.5 MEQ/L (21.0-32.0)
[2017-08-26 06:31] LABS: CREATININE 0.8 MG/DL (0.60-1.30)
[2017-08-26] MEDS: RESP: ALBUTEROL 2.5 MG/IPRATROPIUM 0.5 MG NEB (SCH) INH ×2 (07:42→14:00)
[2017-08-26 07:43] VITALS: O2SAT 90
[2017-08-26 08:00] VITALS: BP 177/94; PULSE 71; RESP 20; TEMP 96.9; O2SAT 90
[2017-08-26] MEDS ORDERED: OXYGENDME NAS.CANULA (08:10)
--- NOTE | 2017-08-26 08:11 | HHI.DCPOC ---
Discharge Care Plan Diagnosis: (1) Chronic respiratory failure with hypoxia and hypercapnia (2) Chronic obstructive pulmonary disease with acute exacerbation (3) Shortness of breath Goals to Promote Your Health * To prevent worsening of your condition and complications * To maintain your health at the optimal level Directions to Meet Your Goals Take your medications as prescribed Follow your dietary instruction Follow activity as directed Keep your appointments as scheduled Take your immunizations and boosters as scheduled If your symptoms worsen call your PCP, if no PCP go to Urgent Care Center or Emergency Room Smoking is Dangerous to Your Health. Avoid second hand smoke Call the 24-hour hour crisis hotline for domestic abuse at Robert Reed Aug 26, 2017 08:11
--- NOTE | 2017-08-26 08:18 | HHI.PR ---
Subjective Remarks 57-year-old male who is seen in follow-up today and chronic hypoxic/hypercapnic respiratory failure, chronic obstructive pulmonary disease with acute exacerbation, chest pain. Patient states that he is doing much better. Patient denies any recurrent pleuritic chest pain. He states that he is breathing better since he is been put back on oxygen. Vital signs are stable, patient remains afebrile Objective Vitals Vital Signs Date Time Temp Pulse Resp B/P (MAP) Pulse Ox O2 Delivery O2 Flow Rate FiO2 08/26/17 07:43 90 Nasal Cannula 2.00 08/26/17 04:00 97.6 08/26/17 00:15 98.6 75 20 123/61 (81) 92 08/25/17 21:00 77 08/25/17 20:00 96.1 79 16 137/75 (95) 90 08/25/17 19:57 92 Nasal Cannula 2.00 08/25/17 18:20 81 08/25/17 17:12 08/25/17 16:02 85 18 111/69 (83) 93 Nasal Cannula 2.00 08/25/17 14:50 92 Nasal Cannula 2.00 08/25/17 14:31 95 Nasal Cannula 2.00 08/25/17 14:31 95 Nasal Cannula 2.00 08/25/17 14:17 (89) 08/25/17 14:13 99.2 85 18 116/75 (89) 95 Nasal Cannula 2.00 08/25/17 14:13 87 Room Air I/O 08/25/17 08/25/17 08/25/17 08/26/17 08/26/17 08/26/17 07:00 15:00 23:00 07:00 15:00 23:00 Intake Total 1000 ml Output Total 300 ml 0 ml Balance -300 ml 1000 ml Intake Oral 1000 ml Output Urine Total 300 ml Stool Total 0 ml # Voids 1 3 Result Diagram: 08/26/17 0535 08/26/17 0535 Imaging Last Impressions Chest X-Ray 08/25/17 1424 Signed Impressions: Service Date/Time: July 14:28 - CONCLUSION: Bibasilar streakiness is again noted consistent with atelectasis and/or infiltrates. Clinical correlation is recommended. Ronn Cochran MD Objective Remarks GENERAL: Well-developed, central obese, in no acute distress. alert and orientated HEENT: Head is normocephalic without any lesions or masses noted. Facial features are symmetric. Eyes: Extraocular muscles are intact. Conjunctivae were clear. NECK: Supple without any masses. Trachea midline no deviation. No JVD, CARDIAC: Regular rhythm, regular rate. S1/S2 are heard. No murmurs gallops or rubs. LUNGS: Diminished breath sounds, decreased air movement. No wheeze, rhonchi or rales. No use of accessory muscles on inspiration or expiration. ABDOMEN: Soft, nontender. Nondistended. Bowel sounds heard in all 4 quadrants. No organomegaly or masses. Negative rebound, negative guarding EXTREMITIES:2+ pitting edema noted bilateral lower extremities, pulses are equal bilaterally. No cyanosis or clubbing NEUROLOGY: Mood and affect appear appropriate. Cranial nerves II through XII grossly intact. Moving all extremities, speech is clear Procedures ECHOCARDIOGRAM Urinary Catheter: No Vascular Central Line Catheter: No A/P Assessment and Plan Chronic obstructive pulmonary disease with acute exacerbation, improving -Continue O2 sat mentation maintain O2 sats greater than 92% -Duo nebs every 6 hours while awake and every 2 hours as needed -Solu-Medrol 60 mg IV every 6 hours -Continue Symbicort inhaler -Obtain sputum culture, -Influenza testing was negative -Continue Levaquin 750 mg daily -Pro-calcitonin level was normal Chest pain, atypical -Patient does have increased risk factors to include age, body habitus, hypertension, diabetes, tobacco use -Patient did present with symptoms to include shortness of breath, dyspnea on exertion, orthopnea, lower extremity edema -Chest x-ray does not indicate any edema, BNP was 33 -Patient has been ruled out for acute coronary event with serial cardiac enzymes that are negative -Serial EKGs were performed which did not indicate any acute abnormality or any changes -Echocardiogram -Continue monitor telemetry -Continue aspirin, beta-edel, GALEN inhibitor -LDL 128, will start Lipitor 40 mg daily Chronic hypoxic, hypercapnic respiratory failure -Patient states that [facility] would not continue to authorize his home oxygen -Home oxygen walk study was performed which indicated patient require home oxygen -Case management consulted to arrange for home oxygen upon discharge Diabetes -Accu-Cheks with sliding scale insulin -Diabetic diet -Hemoglobin A1c: 5.9 Hypertension -Home medications have been continued DVT prevention -Sequential compression devices -Subcutaneous heparin Discharge Planning Discharge home in stable condition Activity: Ad eliel. Diet: Diabetic diet Medication per medication reconciliation Follow-up with primary medical doctor in 1 week Robert Reed Aug 26, 2017 08:18
[2017-08-26] MEDS: LISINOPRIL 20 MG TAB PO SCH (08:19)
[2017-08-26] MEDS: HYDROCHLOROTHIAZIDE 12.5 MG CAP PO SCH (08:20)
[2017-08-26] MEDS: CARVEDILOL 12.5 MG TAB PO SCH (08:20)
[2017-08-26] MEDS: INSULIN ASPART SUPPLEMENTAL SCALE SQ SCH ×3 (08:21→17:30)
[2017-08-26] MEDS: HEPARIN SODIUM - SQ 10,000 UNITS/ML VIAL SQ SCH (08:21)
[2017-08-26] MEDS: BUDESONIDE-FORMOTEROL 160/4.5 MCG INHALER INH SCH (08:30)
[2017-08-26] MEDS: SODIUM CHLORIDE 0.9% FLUSH 10 ML FLUSH IV FLUSH SCH (08:43)
[2017-08-26] MEDS ORDERED: NON-FORMULARY DRUG (Lisinopril-Hctz 2 TAB) PO SCH (09:00)
[2017-08-26] MEDS ORDERED: POTASSIUM CHLORIDE 20 MEQ CONTROLLED RELEASE TAB PO SCH (09:00)
[2017-08-26] MEDS ORDERED: FUROSEMIDE 40 MG TAB PO SCH (09:00)
[2017-08-26] MEDS ORDERED: LISINOPRIL 20 MG TAB PO SCH (09:00)
[2017-08-26] MEDS ORDERED: NICOTINE 21 MG/24 HR PATCH TD SCH (09:00)
[2017-08-26 10:36] LABS: CHOLESTEROL/ HDL RATIO 4.8 RATIO; HDL CHOLESTEROL 41.6 MG/DL (40.0-60.0)
[2017-08-26 11:39] VITALS: BP 140/70; PULSE 73; RESP 19; TEMP 98.7; O2SAT 90
--- NOTE | 2017-08-26 13:11 | EKG ---
Date Performed: 08/25/2017 Time Performed: 14:09:02 PTAGE: 57 years EKG: Sinus rhythm WITH OCCASIONAL VENTRICULAR PREMATURE COMPLEXES NONSPECIFIC ST & T-WAVE ABNORMALITY Compared to prev ious tracing Nonspecific ST and T wave abnormalities are now present BORDERLINE ECG PREVIOUS TRACING : 08/08/2017 11.52 DOCTOR: Adrien De Dios Interpretating Date/Time 08/26/2017 13:09:17
--- NOTE | 2017-08-26 13:45 | EKG ---
Date Performed: 08/26/2017 Time Performed: 02:25:50 PTAGE: 57 years EKG: Sinus rhythm WITH MARKED SINUS ARRHYTHMIA MODERATE ST DEPRESSION ABNORMAL ECG PREVIOUS TRACING : 08/25/2017 20.15 Since the previous tracing, no significant change noted DOCTOR: Adrien De Dios Interpretating Date/Time 08/26/2017 13:42:58
--- NOTE | 2017-08-26 13:45 | EKG ---
Date Performed: 08/25/2017 Time Performed: 20:15:40 PTAGE: 57 years EKG: Sinus rhythm WITH SINUS ARRHYTHMIA NONSPECIFIC T-WAVE ABNORMALITY BORDERLINE ECG PREVIOUS TRACING : 08/25/2017 14.09 Since the previous tracing, no significant change noted DOCTOR: Adrien De Dios Interpretating Date/Time 08/26/2017 13:42:51
[2017-08-26 16:00] VITALS: BP 157/76; PULSE 74; RESP 20; TEMP 97.8; O2SAT 91
[2017-08-26 16:14] LABS: HEMOGLOBIN A1C 5.9 % (4.3-6.0)
[2017-08-26] MEDS ORDERED: LEVA750T9 PO (17:01)
[2017-08-26] MEDS ORDERED: POTA20TA5 PO (17:01)
[2017-08-26] MEDS ORDERED: MEDR4PAK PO (17:01)
[2017-08-26] MEDS ORDERED: LIPI40TA PO (17:03)
[2017-08-26] MEDS: LEVOFLOXACIN 750 MG TAB PO SCH (17:30)
== END 2017-08-26 17:44 | disposition home or self-care (01) | DRG 191 ==
LOC: PHED 14:03 → PHEDA 16:12 → PH3B 17:06
PROVIDERS: ADMIT Hospitalist; ATTEND Hospitalist
DX: J44.1 Chronic obstructive pulmonary disease with (acute) exacerbation (principal); J96.12 Chronic respiratory failure with hypercapnia; J96.11 Chronic respiratory failure with hypoxia; Z99.81 Dependence on supplemental oxygen; E87.6 Hypokalemia; I45.6 Pre-excitation syndrome; E11.9 Type 2 diabetes mellitus without complications; F12.90 Cannabis use, unspecified, uncomplicated; I10 Essential (primary) hypertension; F17.210 Nicotine dependence, cigarettes, uncomplicated; Z79.51 Long term (current) use of inhaled steroids; Z79.899 Other long term (current) drug therapy; Z88.0 Allergy status to penicillin; Z88.8 Allergy status to other drugs, medicaments and biological substances; Z96.653 Presence of artificial knee joint, bilateral
CPT/HCPCS: 71045; 80048; 80053; 80061; 82550; 82552; 82948; 83036; 83880; 84145; 84484; 85025; 87804; 93005; 93306; 94150; 94618; 94640; 94664; 96374; J1644; J1815; J2930